=== PATIENT | male | born 1970 | race African-American/Black ===

== ENCOUNTER 2016-06-30 17:20 | Emergency (ER) | payer OTHER ==
[~2016-06-30] VITALS: Ht 177.8 cm; Wt 113.4 kg
[~2016-06-30 17:20] MED LIST: AMLO5TAB4 PO; ASPI325T4 PO; CARV12.5 PO; CARV6.25 PO; CARV6.252 PO; CLOP75TA PO; FURO-68 PO; FURO40TA4 PO; IBUP200T43 PO; LISI-334 PO; LISI20TA PO; LOVA20TA2 PO; POTA20TA12 PO; POTA20TA84 PO
[2016-06-30 17:31] VITALS: BP 143/103
[2016-06-30] MEDS ORDERED: HYDR-971 PO (18:22)
[2016-06-30] MEDS ORDERED: METH-37 PO (18:22)
--- NOTE | 2016-06-30 18:22 | PHYS DOC ---
Past Medical History Past Medical History: CAD, CHF, Hypertension Additional Past Surgical Histo: CARDIAC STENT, DEFIBRILLATOR Additional Information: nonsmoker Alcohol Use: None Drug Use: Marijuana Adult General Chief Complaint Chief Complaint: LOWER BACK PAIN OR INJURY HPI HPI Patient is a 46 year old male who presents with low back pain starting yesterday. There is no radiation of the pain. He states that his pain began while sitting and playing dominoes for many hours. He denies any injury to his back. He denies incontinence or saddle anesthesia. He has not had any nausea, vomiting, abdominal pain, or urinary symptoms. He does not have any weakness or numbness. His PCP is Dr. Julianna Herrera. Review of Systems Review of Systems Constitutional: Denies fever or chills. [] Eyes: Denies change in visual acuity, redness, or eye pain. [] HENT: Denies ear pain, nasal congestion or sore throat. [] Respiratory: Denies cough or shortness of breath. [] Cardiovascular: Denies chest pain, palpitations or edema. [] GI: Denies abdominal pain, nausea, vomiting, bloody stools or diarrhea. [] : Denies dysuria, hematuria or urinary frequency. [] Musculoskeletal: Denies joint pain. Reports low-back pain without radiation. Integument: Denies rash or skin lesions. [] Neurologic: Denies headache, focal weakness or sensory changes. Denies incontinence or saddle anesthesia. Endocrine: Denies polyuria or polydipsia. [] Psych: Denies anxiety or depression. [] All systems reviewed and negative unless otherwise stated in the HPI. Allergies Allergies Allergies Coded Allergies Type Severity Reaction Last Updated Verified erythromycin base Allergy Severe rash/hives 09/13/13 Yes Physical Exam Physical Exam Constitutional: Well developed, well nourished, no acute distress, non-toxic appearance. [] HENT: Normocephalic, atraumatic, oropharynx moist. [] Eyes: PERRLA, EOMI, conjunctiva normal, no discharge. [] Neck: Normal range of motion, no midline or paraspinal tenderness, supple, no stridor. [] Cardiovascular: Heart rate regular rhythm, no murmur. [] Lungs & Thorax: Bilateral breath sounds clear to auscultation without wheezes, rales, or rhonchi. [] Abdomen: Bowel sounds normal, soft, no tenderness, no masses, no pulsatile masses. [] Skin: Warm, dry, no erythema, no rash. [] Back: Lumbar midline tenderness, no CVA tenderness. Straight leg raise negative bilaterally. Extremities: No tenderness, ROM intact, no edema. Distal pulses equal bilaterally. Light touch sensation intact and equal bilaterally proximally and distally in the legs. Neurologic: Alert and oriented X 3, normal motor function, normal sensory function, no focal deficits noted. The patient walks with a normal, steady gait without assistance. Psychologic: Affect normal, judgement normal, mood normal. [] Current Patient Data Vital Signs Vital Signs Date Time Temp Pulse Resp B/P Pulse Ox O2 Delivery O2 Flow Rate FiO2 06/30/16 17:31 97.7 83 18 98 Room Air 97.7 EKG EKG [] Radiology/Procedures Radiology/Procedures [] Course & Med Decision Making Course & Med Decision Making Pertinent Labs and Imaging studies reviewed. (See chart for details) [] Dragon Disclaimer Dragon Disclaimer This electronic medical record was generated, in whole or in part, using a voice recognition dictation system. Departure Departure Impression: Primary Impression: Low back pain Disposition: HOME, SELF-CARE Condition: STABLE Referrals: UNKNOWN PCP NAME (PCP) Patient Instructions: Back Pain, Adult, [id number] Additional Instructions: Please take the prescribed medications as directed. Do not drive or operate heavy machinery while taking pain medication or muscle relaxers. In order to help your back pain, apply heat, practice gentle stretching, and light massage. Avoid bending or lifting activities that will further strain your back. Please follow-up with your primary care doctor if your pain continues. Return to emergency department if you have loss of bowel or bladder control, numbness between your legs, or other new or concerning symptoms. Scripts Methocarbamol (Robaxin)500 Mg Lisyhm277 Mg PO QID #20 TAB Prov:ARBEN NUNEZ 06/30/16 Hydrocodone/Apap 5-325 ([place] 5-325 Tablet)1 Each Tablet1 Tab PO PRN Q6HRS PRN PAIN #20 TAB Prov:ARBEN NUNEZ 06/30/16 Problem Qualifiers Primary Impression: Low back pain Chronicity: acute Back pain laterality: midline Sciatica presence: without sciatica Qualified Code: M54.5 - Low back pain ARBEN NUNEZ Jun 30, 2016 18:22
== END 2016-06-30 18:30 | disposition home or self-care (01) ==
LOC: ER 17:20
DX: M54.5 Low back pain (principal); I11.0 Hypertensive heart disease with heart failure; I50.9 Heart failure, unspecified; I25.10 Atherosclerotic heart disease of native coronary artery without angina pectoris; F12.10 Cannabis abuse, uncomplicated; Z95.810 Presence of automatic (implantable) cardiac defibrillator; Z88.1 Allergy status to other antibiotic agents
CPT/HCPCS: 99283

== ENCOUNTER → 2016-07-02 | Outpatient (CLI) | payer OTHER ==
[2016-06-30 17:31] VITALS: BP 143/103
[~2016-07-02] MED LIST changes: +HYDR-971 PO; +METH-37 PO; +REGADENOSON 0.4 MG/5 ML DISP.SYRIN. IV ONE
--- NOTE | 2016-07-04 10:13 | RAD ---
APPROVED REPORT Test Type: Pharmacological Stress Nurse/Tech: Joycelyn Kilgore R.N. Test Indications: CAD, Cardiomyopathy Cardiac History: Hypertension, Family history, CAD, Stent Medications: See Electronic Medical Record Medical History: See Electronic Medical Record Resting ECG: NSR Resting Heart Rate: 66 bpm Resting Blood Pressure: 157/100mmHg Pretest Chest Pain: No chest pain Nurse/Tech Notes S1S2, lungs sound clear Consent: The procedure was explained to the patient in lay terms. Informed consent was witnessed. [place]quito eout was entered into [employer]. History and Stress Test performed by Joycelyn Kilgore R.N. Pharm. Details Pharmacologic stress testing was performed using 0.4mg per 5ml of regadenoson given intravenously ove r 7-10 seconds. Stress Symptoms Dyspnea, stomach cramping POST EXERCISE Reason for Termination: Infusion complete Max HR: 101 bpm Max Blood Pressure: 164/99mmHg Blood Pressure response to exercise: Normal blood pressure response during stress. Chest Pain: No. Arrhythmia: No. ST Change: No. INTERPRETATION Stress EKG Conclusion: No evidence of stress induced EKG changes. Imaging Protocol IMAGE PROTOCOL: Rest Tc-99m/stress Tc-99m 1 day Rest: Stress: Viability: Radiopharm.Tc99m EjqlvrcasWh44h Sestamibi Pedw05aWh 34mCi Duration 17min. 12min. Img Date 07/02/2016 07/02/2016 Rest Admin Site:IV - Right AntecubitalAdministrator:TESSY Vinson Stress Admin Site: IV - Right AntecubitalAdministrator: Hawk Ibarra, RT (R)(N) STRESS DATA End Diast. Vol.120.0mlAv. Heart Rate66.0bpm End Syst. Vol.52.0mlCO Index BSA4.5L/min Myocardial Tgdp147.0gEject. Dhvomeqk35.0% Stress Rates Pk. Fill Rate2.30EDV/secLVtime Pk. Fill 105.60msec Pk. Empty Rate2.58ESV/secLVtime Pk. Jozzq470.45msec 04/22 Pk. Fill1.63EDV/sec Stress Scores Regional WT2.00Summed WT19.00 Regional WM0.00Summed WM11.00 The rest and stress images show normal perfusion, normal contraction and thickening. LV Perf. Quant 17 Seg. SSS1.00 17 Seg. SRS0.00 17 Seg. SDS1.00 Stress Defect Extent (% LAD)7.50Rest Defect Extent (% LAD)0.00Rev. Defect Extent (% LAD)6.30 Stress Defect Extent (% LCX) 0.00Rest Defect Extent (% LCX)0.00Rev. Defect Extent (% LCX)0.00 Stress Defect Extent (% RCA)0.00Rest Defect Extent (% RCA)0.00Rev. Defect Extent (% RCA)0.00 Stress Defect Extent (% SABRINA)4.10Rest Defect Extent (% SABRINA)0.00Rev. Defect Extent (% SABRINA)3.70 Other Information Quality:Fair Risk Assessment: Low Risk Conclusion 1. No evidence of stress induced EKG changes on vasodilator stress. 2. Normal perfusion at stress/rest. 3. EF 57% 4. Low risk study 5. Motion artifact noted.
--- NOTE | 2016-07-04 11:03 | CARD ---
APPROVED REPORT EXAM: Two-dimensional and M-mode echocardiogram with Doppler and color Doppler. Other Information Quality : GoodHR: 81bpm Rhythm : NSR INDICATION Hypertension/HCVD Non ischemic cardiomyopathy RISK FACTORS Hypertension Obesity 2D DIMENSIONS RVDd2.7 (2.9-3.5cm)Left Atrium(2D)3.7 (1.6-4.0cm) IVSd1.4 (0.7-1.1cm)Aortic Root(2D)3.2 (2.0-3.7cm) LVDd5.2 (3.9-5.9cm)LVOT Diameter2.5 (1.8-2.4cm) PWd1.3 (0.7-1.1cm)LVDs3.3 (2.5-4.0cm) FS (%) 35.9 %SV83.4 ml LVEF(%)65.1 (>50%) Aortic Valve AoV Peak Merlin.111.4cm/sAoV VTI22.6cm AO Peak GR.5.0mmHgLVOT Peak Merlin.80.2cm/s AO Mean GR.3mmHgAVA (VMAX)3.46cm2 Mitral Valve MV E Pprdigur45.3cm/sMV E Peak Gr.2mmHg MV DECEL [id number] A Cbktrgjs99.3cm/s MV E Mean Gr.1mmHgE/A Ratio0.8 MV A Pvvxlioh918tq Pulmonary Valve PV Peak Pdutvadc16.3cm/s Tricuspid Valve TR P. Nixwtwja497tl/sTR Peak Gr.25mmHg Pulmonary Vein S1 Txgxxmdw58.5cm/sD2 Qgyiouma51.7cm/s PVa vtzeimnz23umim LEFT VENTRICLE The left ventricle is normal size. There is mild concentric left ventricular hypertrophy. The left ve ntricular systolic function is normal and the ejection fraction is within normal range. The Ejection Fraction is 55-60%. There is normal LV segmental wall motion. Transmitral Doppler flow pattern is Gra de I-abnormal relaxation pattern. RIGHT VENTRICLE The right ventricle is normal size. There is normal right ventricular wall thickness. The right ventr icular systolic function is normal. ATRIA The left atrium size is normal. The right atrium size is normal. The interatrial septum is intact wit h no evidence for an atrial septal defect or patent foramen ovale as noted on 2-D or Doppler imaging. AORTIC VALVE The aortic valve is normal in structure and function. Doppler and Color Flow revealed no significant aortic regurgitation. There is no significant aortic valvular stenosis. MITRAL VALVE The mitral valve is normal in structure and function. There is no evidence of mitral valve prolapse. There is no mitral valve stenosis. Doppler and Color Flow revealed trace mitral valve regurgitation. TRICUSPID VALVE Doppler and Color Flow revealed mild tricuspid regurgitation. The pulmonary artery systolic pressure is estimated at 28 mmHg. PULMONIC VALVE Doppler and Color Flow revealed mild pulmonic valvular regurgitation. There is no pulmonic valvular s tenosis. GREAT VESSELS The aortic root is normal in size. The ascending aorta is normal in size. The pulmonary artery is nor mal. The IVC is normal in size and collapses >50% with inspiration. PERICARDIAL EFFUSION There is no evidence of significant pericardial effusion. Critical Notification Critical Value: No <Conclusion> The left ventricle is normal size. The left ventricular systolic function is normal and the ejection fraction is within normal range. The Ejection Fraction is 55-60%. There is mild concentric left ventricular hypertrophy. There is no significant aortic valvular stenosis. Doppler and Color Flow revealed no significant aortic regurgitation. Doppler and Color Flow revealed trace mitral valve regurgitation. Doppler and Color Flow revealed mild tricuspid regurgitation. The pulmonary artery systolic pressure is estimated at 28 mmHg.
== END | disposition home or self-care (01) ==
LOC: NM 09:04
PROVIDERS: ATTEND Internal Medicine Cardiovascular Disease
DX: I42.9 Cardiomyopathy, unspecified (principal)
CPT/HCPCS: 78452; 93017; 93306; 96374; 96375; 96376; A9500; J2785

== ENCOUNTER 2017-03-21 21:48 | Emergency (ER) | payer OTHER ==
[~2017-03-21] VITALS: Ht 177.8 cm; Wt 117.9 kg
[~2017-03-21 21:48] MED LIST changes: -ASPI325T4 PO; +ASPI325T8 PO; -IBUP200T43 PO; +IBUP200T44 PO; -REGADENOSON 0.4 MG/5 ML DISP.SYRIN. IV ONE
[2017-03-21 21:55] VITALS: BP 169/92
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
[2017-03-21] MEDS ORDERED: IBUPROFEN 800 MG TABLET. PO ONE (22:00)
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
== END 2017-03-21 22:33 | disposition home or self-care (01) ==
LOC: ER 21:48
DX: S63.602A Unspecified sprain of left thumb, initial encounter (principal); I25.10 Atherosclerotic heart disease of native coronary artery without angina pectoris; I11.0 Hypertensive heart disease with heart failure; I50.9 Heart failure, unspecified; F12.10 Cannabis abuse, uncomplicated; Z95.5 Presence of coronary angioplasty implant and graft; Z88.1 Allergy status to other antibiotic agents; Z95.810 Presence of automatic (implantable) cardiac defibrillator; X58.XXXA Exposure to other specified factors, initial encounter; Y93.89 Activity, other specified; Y92.89 Other specified places as the place of occurrence of the external cause; Y99.8 Other external cause status
CPT/HCPCS: 73130; 99284

== ENCOUNTER → 2017-06-29 | Outpatient (CLI) | payer OTHER | END | disposition home or self-care (01) | LOC: ECHO 10:09 | DX: I42.8 Other cardiomyopathies (principal); I36.1 Nonrheumatic tricuspid (valve) insufficiency | CPT/HCPCS: 93306 ==

== ENCOUNTER 2017-09-19 09:11 | Emergency (ER) | payer OTHER ==
[2017-09-19] MEDS: NAPROXEN 500 MG TABLET PO (09:51)
[2017-09-19] MEDS: predniSONE 20 MG TABLET PO (09:51)
[2017-09-19] MEDS: diazePAM 5 MG TABLET PO (09:52)
[2017-09-19] MEDS: HYDROcodone/APAP 5/325MG 1 TAB TABLET PO (09:52)
== END 2017-09-19 10:00 | disposition home or self-care (01) ==
LOC: ER 09:11
DX: M54.41 Lumbago with sciatica, right side (principal); M62.831 Muscle spasm of calf; I25.10 Atherosclerotic heart disease of native coronary artery without angina pectoris; I11.0 Hypertensive heart disease with heart failure; I50.9 Heart failure, unspecified; Z95.0 Presence of cardiac pacemaker; Z98.61 Coronary angioplasty status; Z88.1 Allergy status to other antibiotic agents
CPT/HCPCS: 99284; J7512

== ENCOUNTER 2017-12-08 19:37 | Emergency (ER) | payer OTHER ==
[~2017-12-08] VITALS: Ht 177.8 cm; Wt 113.4 kg
[~2017-12-08 19:37] MED LIST changes: +DIAZ5TAB PO; +METH4TAB2 PO; +NAPR-514 PO
[2017-12-08] MEDS: IPRATRPIUM/ALBUTEROL 0.5/2.5MG 3 ML NEBU. NEB ONE (20:22)
[2017-12-08 20:27] VITALS: BP 197/107
[2017-12-08] MEDS: cloNIDine HCL 0.1 MG TABLET PO ONE (20:27)
--- NOTE | 2017-12-08 20:39 | RAD ---
PROCEDURE: CHEST PA LATERAL CLINICAL INDICATION: SOA, COUGH, CONGESTION, HEADACHE X4 DAYS COMPARISON: None FINDINGS: No pneumothorax identified. Cardiac and mediastinal contours unremarkable. No pulmonary consolidation or acute airspace disease. No acute osseous abnormalities identified. Dual-lead cardiac pacer is seen with its leads projecting over the heart. IMPRESSION: No pulmonary consolidation or acute airspace disease. Electronically signed by: Casey Finch DO (12/08/2017 8:36 PM) [facility]
[2017-12-08] MEDS ORDERED: PROAIR HFA8.5 GM INH (20:46)
[2017-12-08] MEDS ORDERED: DOXY100C2 PO (20:46)
[2017-12-08] MEDS ORDERED: PRED50TA PO (20:46)
--- NOTE | 2017-12-08 20:48 | PHYS DOC ---
Past Medical History Past Medical History: CAD, CHF, Hypertension Past Surgical History: Angioplasty, Pacemaker Additional Past Surgical Histo: DEFIBRILLATOR Alcohol Use: Occasionally Drug Use: Marijuana Adult General Chief Complaint Chief Complaint: Congestion HPI HPI Patient is a 47 year old [f__sex] who presents with [] Review of Systems Review of Systems Constitutional: Denies fever or chills [] Eyes: Denies change in visual acuity, redness, or eye pain [] HENT: Denies nasal congestion or sore throat [] Respiratory: Denies cough or shortness of breath [] Cardiovascular: No additional information not addressed in HPI [] GI: Denies abdominal pain, nausea, vomiting, bloody stools or diarrhea [] : Denies dysuria or hematuria [] Musculoskeletal: Denies back pain or joint pain [] Integument: Denies rash or skin lesions [] Neurologic: Denies headache, focal weakness or sensory changes [] Endocrine: Denies polyuria or polydipsia [] All other systems were reviewed and found to be within normal limits, except as documented in this note. Current Medications Current Medications Current Medications Medications (Trade) Dose Ordered Sig/David Start Time Stop Time Status Last Admin Dose Admin Albuterol/ Ipratropium (Duoneb) 3 ml 1X ONCE 12/08/17 20:30 12/08/17 20:31 DC 12/08/17 20:22 3 ML Clonidine HCl (Catapres) 0.1 mg 1X ONCE 12/08/17 20:30 12/08/17 20:31 DC 12/08/17 20:27 0.1 MG Allergies Allergies Allergies Coded Allergies Type Severity Reaction Last Updated Verified erythromycin base Allergy Severe rash/hives 09/13/13 Yes Physical Exam Physical Exam Constitutional: Well developed, well nourished, no acute distress, non-toxic appearance. [] HENT: Normocephalic, atraumatic, bilateral external ears normal, oropharynx moist, no oral exudates, nose normal. [] Eyes: PERRLA, EOMI, conjunctiva normal, no discharge. [] Neck: Normal range of motion, no tenderness, supple, no stridor. [] Cardiovascular:Heart rate regular rhythm, no murmur [] Lungs & Thorax: Bilateral breath sounds clear to auscultation [] Abdomen: Bowel sounds normal, soft, no tenderness, no masses, no pulsatile masses. [] Skin: Warm, dry, no erythema, no rash. [] Back: No tenderness, no CVA tenderness. [] Extremities: No tenderness, no cyanosis, no clubbing, ROM intact, no edema. [] Neurologic: Alert and oriented X 3, normal motor function, normal sensory function, no focal deficits noted. [] Psychologic: Affect normal, judgement normal, mood normal. [] Current Patient Data Vital Signs Vital Signs Date Time Temp Pulse Resp B/P (MAP) Pulse Ox O2 Delivery O2 Flow Rate FiO2 12/08/17 20:27 68 197/107 12/08/17 20:24 98 Room Air 12/08/17 19:58 98.4 18 98.4 EKG EKG [] Radiology/Procedures Radiology/Procedures [] Course & Med Decision Making Course & Med Decision Making Pertinent Labs and Imaging studies reviewed. (See chart for details) [] Dragon Disclaimer Dragon Disclaimer This electronic medical record was generated, in whole or in part, using a voice recognition dictation system. Departure Departure Impression: Primary Impression: Bronchitis Additional Impressions: Headache Upper respiratory infection Disposition: 01 HOME, SELF-CARE Condition: STABLE Referrals: UNKNOWN PCP NAME (PCP) Patient Instructions: Acute Bronchitis, General Headache Without Cause, Easy-to -Read, Upper Respiratory Infection, Adult Additional Instructions: Take the medication as prescribed. You may use ibuprofen or Tylenol for your headache. Follow-up with your primary care provider in 3 days if not improving or return to the emergency department if worsening. Make sure that you have food on your stomach when you take the doxycycline. Scripts Albuterol Sulfate (PROAIR HFA INHALER) 8.5 Gm Hfa.aer.ad 1 PUFF INH PRN Q6HRS PRN for SHORTNESS OF BREATH, #1 INHALER 0 Refills Prov: EN BRANHAM APRN 12/08/17 Prednisone (PREDNISONE) 50 Mg Tablet 1 TAB PO DAILY, #5 TAB Prov: EN BRANHAM APRN 12/08/17 Doxycycline Hyclate (DOXYCYCLINE HYCLATE) 100 Mg Capsule 1 CAP PO BID, #14 CAP Prov: EN BRANHAM APRN 12/08/17 Problem Qualifiers EN BRANHAM APRN Dec 08, 2017 20:48
== END 2017-12-08 20:59 | disposition home or self-care (01) ==
LOC: ER 19:37
DX: J20.9 Acute bronchitis, unspecified (principal); R51 Headache; I11.0 Hypertensive heart disease with heart failure; I50.9 Heart failure, unspecified; I25.10 Atherosclerotic heart disease of native coronary artery without angina pectoris; Z95.0 Presence of cardiac pacemaker; Z88.1 Allergy status to other antibiotic agents
CPT/HCPCS: 71046; 94640; 99284; J7620

== ENCOUNTER → 2018-08-26 | Outpatient (CLI) | payer OTHER ==
[~2018-08-26] MED LIST changes: +ALBU2.5V8 INH; +CARV6.2511 PO; -CARV6.252 PO; +DOXY100C2 PO; +HYDR-3164 PO; -HYDR-971 PO; +PRED50TA PO
--- NOTE | 2018-08-26 10:42 | CARD ---
MR#: [id number] Date of Study: 08/26/2018 Ordering Physician: JUANJO SALMERON, Referring Physician: JUANJO SALMERON Tech: Maritza Ventura RDCS APPROVED REPORT EXAM: Two-dimensional and M-mode echocardiogram with Doppler and color Doppler. Other Information Quality : GoodHR: 75bpm Rhythm : NSR INDICATION Congestive Heart Failure 2D DIMENSIONS RVDd3.4 (2.9-3.5cm)Left Atrium(2D)4.0 (1.6-4.0cm) IVSd1.7 (0.7-1.1cm)Aortic Root(2D)3.4 (2.0-3.7cm) LVDd4.4 (3.9-5.9cm)LVOT Diameter2.3 (1.8-2.4cm) PWd1.3 (0.7-1.1cm)LVDs3.1 (2.5-4.0cm) FS (%) 29.0 %SV49.7 ml LVEF(%)55.8 (>50%) M-Mode DIMENSIONS Left Atrium(MM)4.37 (2.5-4.0cm)Aortic Root3.33 (2.2-3.7cm) Aortic Valve AoV Peak Merlin.112.3cm/sAoV VTI22.6cm AO Peak GR.5.0mmHgLVOT Peak Merlin.95.5cm/s AO Mean GR.3mmHgAVA (VMAX)3.63cm2 ZOFIA (VTI)3.50cm2 Mitral Valve MV E Jroeoczu41.0cm/sMV DECEL [id number] MV A Frcoaxns88.7cm/sE/A Ratio1.0 MV A Cvlosvkc788ub Pulmonary Valve PV Peak Vsqeiphx783.9cm/s Tricuspid Valve TR P. Mlgmeajc625ec/sRAP HAVQAXIU3hdAm TR Peak Gr.52yrQwDYYS27yoFk LEFT VENTRICLE The left ventricle is normal size. There is moderate concentric left ventricular hypertrophy. Left ve ntricle systolic function is normal. The Ejection Fraction is 55-60%. There is normal LV segmental wa ll motion. Transmitral Doppler flow pattern is Grade II-pseudonormal filling dynamics. RIGHT VENTRICLE The right ventricle is normal size. There is normal right ventricular wall thickness. The right ventr icular systolic function is normal. Pacer lead noted in RV/RA. ATRIA The left atrium is mildly dilated. The right atrium size is normal. The interatrial septum is intact with no evidence for an atrial septal defect or patent foramen ovale as noted on 2-D or Doppler imagi ng. AORTIC VALVE The aortic valve is normal in structure and function. The aortic valve is trileaflet. Doppler and Col or Flow revealed no significant aortic regurgitation. There is no significant aortic valvular stenosi s. There is no aortic valvular vegetation. MITRAL VALVE The mitral valve is normal in structure and function. There is no evidence of mitral valve prolapse. There is no mitral valve stenosis. Doppler and Color Flow revealed no mitral valve regurgitation note d. TRICUSPID VALVE The tricuspid valve is normal in structure and function. Doppler and Color Flow revealed trace to mil d tricuspid regurgitation. There is mild pulmonary hypertension. The PA pressure was estimated at 34 mmHg. There is no tricuspid valve prolapse or vegetation. There is no tricuspid valve stenosis. PULMONIC VALVE The pulmonary valve is normal in structure and function. Doppler and Color Flow revealed trace pulmon ic valvular regurgitation. There is no pulmonic valvular stenosis. GREAT VESSELS The aortic root is normal in size. The ascending aorta is normal in size. The IVC is normal in size a nd collapses >50% with inspiration. PERICARDIAL EFFUSION There is no evidence of significant pericardial effusion. Critical Notification Critical Value: No <Conclusion> Left ventricle systolic function is normal. The Ejection Fraction is 55-60%. There is normal LV segmental wall motion. Pacer lead noted in RV/RA. The left atrium is mildly dilated. Trace to mild tricuspid regurgitation. The PA pressure was estimated at 34 mmHg. There is no evidence of significant pericardial effusion. Signed by : Juanjo Salmeron, Electronically Approved : 08/26/2018 10:42:09
== END | disposition home or self-care (01) ==
LOC: ECHO 09:46
PROVIDERS: ATTEND Internal Medicine Cardiovascular Disease
DX: I11.0 Hypertensive heart disease with heart failure (principal); I50.22 Chronic systolic (congestive) heart failure; I07.1 Rheumatic tricuspid insufficiency; I27.20 Pulmonary hypertension, unspecified
CPT/HCPCS: 93306

== ENCOUNTER → 2020-05-08 | Outpatient (CLI) | payer OTHER ==
--- NOTE | 2020-05-08 14:30 | CARD ---
MR#: [id number] Date of Study: 05/08/2020 Ordering Physician: JUANJO MORROW, Referring Physician: JUANJO MORROW, Tech: Ana Navarro RDCS APPROVED REPORT EXAM: Two-dimensional and M-mode echocardiogram with Doppler and color Doppler. Other Information Quality : Good INDICATION Congestive Heart Failure ICD 2D DIMENSIONS RVDd3.1 (2.9-3.5cm)Left Atrium(2D)3.7 (1.6-4.0cm) IVSd1.4 (0.7-1.1cm)Aortic Root(2D)2.9 (2.0-3.7cm) LVDd4.6 (3.9-5.9cm)LVOT Diameter2.2 (1.8-2.4cm) PWd1.3 (0.7-1.1cm)LVDs3.0 (2.5-4.0cm) FS (%) 35.1 %SV63.7 ml LVEF(%)64.4 (>50%) Aortic Valve AoV Peak Merlin.91.1cm/sAoV VTI16.6cm AO Peak GR.3.3mmHgLVOT Peak Merlin.67.0cm/s LVOT VTI 13.28cmAO Mean GR.2mmHg ZOFIA (VMAX)2.13jl0ESK (VTI)3.02cm2 Mitral Valve MV E Wjwdbixu23.7cm/sMV DECEL [id number] MV A Mnmkvsof54.3cm/sMV EWD17hm E/A Ratio0.7MVA (PHT)2.86cm2 TDI E/Lateral E'11.3E/Medial E'7.9 Tricuspid Valve TR P. Kxbslcso417fa/sRAP EMACQUBI8llEo TR Peak Gr.45gjLzDYSV64bkLa Pulmonary Vein S1 Bwapqznv36.6cm/sD2 Mftvjhpn14.7cm/s LEFT VENTRICLE The left ventricle is normal size. There is mild to moderate concentric left ventricular hypertrophy. The left ventricular systolic function is normal. The Ejection Fraction is 60-65%. There is normal L V segmental wall motion. Transmitral Doppler flow pattern is Grade I-abnormal relaxation pattern. RIGHT VENTRICLE The right ventricle is normal size. The right ventricular systolic function is normal. There is a pac emaker lead in the right ventricle. ATRIA The left atrium size is normal. The right atrium size is normal. A pacemaker is seen in the right atr ium consistent with history. The interatrial septum is intact with no evidence for an atrial septal d efect or patent foramen ovale as noted on 2-D or Doppler imaging. AORTIC VALVE The aortic valve is calcified but opens well. Doppler and Color Flow revealed no significant aortic r egurgitation. There is no significant aortic valvular stenosis. MITRAL VALVE The mitral valve is normal in structure and function. There is no evidence of mitral valve prolapse. There is no mitral valve stenosis. Doppler and Color Flow revealed no mitral valve regurgitation note d. TRICUSPID VALVE The tricuspid valve is normal in structure and function. Doppler and Color Flow revealed mild tricusp id regurgitation. There is mild pulmonary hypertension. The PA pressure was estimated at 38 mmHg. The re is no tricuspid valve stenosis. PULMONIC VALVE The pulmonary valve is normal in structure and function. Doppler and Color Flow revealed trace to mil d pulmonic valvular regurgitation. There is no pulmonic valvular stenosis. GREAT VESSELS The aortic root is normal in size. The ascending aorta is normal in size. The IVC is normal in size a nd collapses >50% with inspiration. PERICARDIAL EFFUSION There is no evidence of significant pericardial effusion. Critical Notification Critical Value: No <Conclusion> The left ventricular systolic function is normal. The Ejection Fraction is 60-65%. There is normal LV segmental wall motion. Transmitral Doppler flow pattern is Grade I-abnormal relaxation pattern. Pacer/ICD lead noted in RA/RV. Mild tricuspid regurgitation. The PA pressure was estimated at 38 mmHg. There is no evidence of significant pericardial effusion. Signed by : Juanjo Morrow, Electronically Approved : 05/08/2020 14:29:48
== END ==
LOC: CARD 08:23
PROVIDERS: ATTEND Internal Medicine Cardiovascular Disease
DX: I08.8 Other rheumatic multiple valve diseases (principal); I27.20 Pulmonary hypertension, unspecified; I11.0 Hypertensive heart disease with heart failure; Z95.0 Presence of cardiac pacemaker
CPT/HCPCS: 93306

== ENCOUNTER 2021-06-24 06:50 | Observation (INO) | payer OTHER ==
[~2021-06-24] VITALS: Ht 177.8 cm; Wt 125.7 kg
[~2021-06-24 06:50] MED LIST changes: -DOXY100C2 PO; +DOXY100C3 PO; -LISI-334 PO; +LISI20TA18 PO
--- NOTE | 2021-06-24 06:54 | PHYS DOC ---
Past Medical History Past Medical History: CAD, CHF, Hypertension Past Surgical History: Angioplasty, Pacemaker Additional Past Surgical Histo: DEFIBRILLATOR Smoking Status: Former Smoker Alcohol Use: Occasionally Drug Use: Marijuana General Adult HPI: HPI: Patient is a 51 year old male who arrives by private vehicle with report of feeling as if his ICD is firing. Symptoms began 3 days ago. He reports that he felt like something was slamming inside of his chest on Thursday. He had 1 episode occur last night, and then again this morning. He reports that symptoms began while he was at rest. He has had 3 total episodes. He denies any associated chest pain. He does report "a little" of shortness of breath. He has had several days of nasal congestion. He denies cough or hemoptysis. He denies dizziness, syncope, exertional dyspnea, diaphoresis, Jacob pain, nausea or vomiting. Denies lower extremity pain or swelling. Denies fevers or chills. He is not vaccinated against COVID-19. He has had ICD placed since 2013. 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 He has never previously experienced the symptoms. Review of Systems: Review of Systems: Constitutional: Denies fever or chills. [] HENT: He does report nasal congestion. He denies sore throat or voice c hanges. Respiratory: He denies cough or hemoptysis. He does report mild dyspnea. Cardiovascular: Denies chest pain or edema. He denies syncope. GI: Denies abdominal pain, nausea, vomiting Musculoskeletal: Denies back pain or joint pain. [] Integument: Denies rash. [] Neurologic: Denies headache, focal weakness or sensory changes. He denies dizziness, vertigo, numbness, tingling or syncope Psychiatric: Denies depression or anxiety. [] Heart Score: C/O Chest Pain: No Risk Factors: Risk Factors: DM, Current or recent (<one month) smoker, HTN, HLP, family history of CAD, obesity. Risk Scores: Score 0 - 3: 2.5% MACE over next 6 weeks - Discharge Home Score 4 - 6: 20.3% MACE over next 6 weeks - Admit for Clinical Observation Score 7 - 10: 72.7% MACE over next 6 weeks - Early Invasive Strategies Allergies: Allergies: Allergies Coded Allergies Type Severity Reaction Last Updated Verified erythromycin base Allergy Severe rash/hives 09/13/13 Yes Physical Exam: PE: Constitutional: Well developed, well nourished, no acute distress, non-toxic appearance. [] HENT: Normocephalic, atraumatic Eyes: Conjunctive are clear, sclerae anicteric Neck: Normal range of motion, no tenderness, supple, no stridor. Trachea midline, no JVD Cardiovascular:Heart rate regular rhythm, +2 radial and +2 posterior tibial pulses bilaterally, no cyanosis, no edema, warm and well-perfused appearing. Lungs & Thorax: Bilateral breath sounds clear to auscultation [] Abdomen: Abdomen is obese, soft, nondistended, nontender to palpation. Skin: Warm, dry, no erythema, no rash. [] Extremities: No tenderness, no cyanosis, no clubbing, ROM intact, no edema. No calf tenderness. Neurologic: He is awake, alert, oriented x3, no facial asymmetry, gross function is normal, ambulatory with a steady gait, moves all 4 extremities equally Speech is clear and fluent, gait is nonantalgic, steady, no obvious gait ataxia Psychologic: Affect normal, judgement normal, mood normal. [] EKG: EKG: EKG is interpreted at 0718 Rhythm is sinus Rate is 62 bpm [place] is normal No STEMI Radiology/Procedures: Radiology/Procedures: IMAGING REPORT Signed PATIENT: RITA MCINTOSH ACCOUNT: [id number] : 1970 LOCATION: ER AGE: 51 SEX: M EXAM STATUS: REG ER ORD. PHYSICIAN: CHRISTIANA CHOWDHURY DO REASON: dyspnea, defib firing PROCEDURE: PORTABLE CHEST 1V AP portable chest radiograph 06/24/2021 Clinical History: Shortness of breath. Defibrillator discharge. An AP erect portable digital radiograph of the chest was obtained. Comparison study is dated 12/08/2017. A pacemaker/defibrillator is unchanged in position. The cardiac silhouette is normal in size. The thoracic aorta is mildly tortuous. No acute pulmonary infiltrate is seen. No pleural effusion or pneumothorax is noted. Degenerative changes are seen involving the thoracic spine. IMPRESSION: No acute abnormality is seen. Electronically signed by: Duong Ruffin MD (06/24/2021 7:44 AM) [id number] DICTATED and SIGNED BY: DUONG RUFFIN MD DATE: 06/24/21 [id number] Course & Med Decision Making: Course & Med Decision Making Pertinent Labs and Imaging studies reviewed. (See chart for details) I was able to get a hold of the [employer] sales representative cash registers, who interrogated the patient's defibrillator, reviewed rhythm strips from last night and this morning, she denies any evidence of V. tach or V. fib. The patient will be admitted to the hospital, cardiology will be consulted, they will further interrogate his device to find out what he may have been experiencing. He has had no repeat episodes of sensation of ICD firing, no chest pain here. He is accepted for admission by Dr. Davalos. Cierra Disclaimer: Cierra Disclaimer: This electronic medical record was generated, in whole or in part, using a voice recognition dictation system. Departure Departure Impression: Primary Impression: Chest discomfort Additional Impressions: ICD (implantable cardioverter-defibrillator) in place Abnormal ICD sensing Qualified Codes: T82.190A - Other mechanical complication of cardiac electrode, initial encounter Disposition: ADMITTED INPATIENT Admitting Physician: [facility] (Dr. Davalos) Condition: STABLE Referrals: UNKNOWN PCP NAME (PCP) CHRISTIANA CHOWDHURY DO Jun 24, 2021 06:54
[2021-06-24] MEDS ORDERED: ASPIRIN ENTERIC COATED 325 MG TABLET.DR. PO ONE (07:15)
[2021-06-24 07:42] LABS: BASO # 0.1 x10^3/uL (0.0-0.2); BASO % 1 % (0-3); EOS # 0.2 x10^3/uL (0.0-0.7); EOS % 3 % (0-3); HEMATOCRIT 39.8 % (39.0-53.0); HEMOGLOBIN 13.4 g/dL (13.0-17.5); LYMPH # 2.1 x10^3/uL (1.0-4.8); LYMPH % 25 % (24-48); MEAN CORPUSCULAR HEMOGLOBIN 32 pg (25-35); MEAN CORPUSCULAR HGB CONC 34 g/dL (31-37); MEAN CORPUSCULAR VOLUME 96 fL (79-100); MONO # 0.9 x10^3/uL (0.0-1.1); MONO % 11 % (0-9); NEUT % 60 % (31-73); PLATELET COUNT 233 x10^3/uL (140-400); RED BLOOD COUNT 4.15 x10^6/uL (4.30-5.70); RED CELL DISTRIBUTION WIDTH 13.7 % (11.5-14.5); WHITE BLOOD COUNT 8.4 x10^3/uL (4.0-11.0)
--- NOTE | 2021-06-24 07:47 | RAD ---
AP portable chest radiograph 06/24/2021 Clinical History: Shortness of breath. Defibrillator discharge. An AP erect portable digital radiograph of the chest was obtained. Comparison study is dated 12/08/2017. A pacemaker/defibrillator is unchanged in position. The cardiac silhouette is normal in size. The tho racic aorta is mildly tortuous. No acute pulmonary infiltrate is seen. No pleural effusion or pneumot horax is noted. Degenerative changes are seen involving the thoracic spine. IMPRESSION: No acute abnormality is seen. Electronically signed by: Duong Ruffin MD (06/24/2021 7:44 AM) [id number]
[2021-06-24 07:48] LABS: CALCIUM 8.8 mg/dL (8.5-10.1); CREATININE 1.7 mg/dL (0.7-1.3); GFR 51.3; POTASSIUM 4.3 mmol/L (3.5-5.1)
[2021-06-24 07:54] LABS: ALBUMIN 3.7 g/dL (3.4-5.0); ALBUMIN/GLOBULIN RATIO 1.1 (1.0-1.7); MAGNESIUM 1.8 mg/dL (1.8-2.4); PHOSPHORUS 4.1 mg/dL (2.6-4.7); TOTAL BILIRUBIN 0.4 mg/dL (0.2-1.0); TOTAL PROTEIN 7.1 g/dL (6.4-8.2)
[2021-06-24 11:50] VITALS: BP 148/92
--- NOTE | 2021-06-24 12:28 | PDOC1 ---
History and Physical Date of Service: DOS: DATE: 06/24/21 TIME: 12:22 Chief Complaint: Chief Complain: Chest pain from firing of his AICD History of Present Illness: HPI: History obtained from discussion with the ED physician and chart review: 51-year-old male with past medical history of CAD, CHF, hypertension, AICD placement who reports chest pain secondary to AICD firing randomly. This began 3 days ago and it felt like someone was pounding on his chest. He had one episode last night and again this morning. It occurred during rest and has a total of 3 episodes. Patient does report some shortness of breath. Denies any fevers abdominal pains or recent illnesses. = He is not vaccinated against COVID-19. He has had ICD placed since 2013. 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 He has never previously experienced the symptoms. Past Medical/Surgical History: PMH/PSH: Past Medical History: CAD, CHF, Hypertension Past Surgical History: Angioplasty, DEFIBRILLATOR Allergies: Allergies: Coded Allergies: erythromycin base (Verified Allergy, Severe, rash/hives, 06/24/21) Family History: Family History: Reviewed with no relative findings in the chart Social History: Social History: Smoking Status: Former Smoker Alcohol Use: Occasionally Drug Use: Marijuana Current Medications: Current Medications Current Medications Aspirin (Ecotrin) 325 mg 1X ONCE PO Last administered on 06/24/21at 08:25; Start 06/24/21 at 07:15; Stop 06/24/21 at 07:16; Status DC Active Scripts Active Proair Hfa Inhaler (Albuterol Sulfate) 8.5 Gm Hfa.aer.ad 1 Puff INH PRN Q6HRS PRN Prednisone 50 Mg Tablet 1 Tab PO DAILY Doxycycline Hyclate 100 Mg Capsule 1 Cap PO BID Naproxen 500 Mg Tablet 1 Tab PO BID Valium (Diazepam) 5 Mg Tablet 5 Mg PO TID Medrol (Methylprednisolone) 4 Mg Tab.ds.pk 1 Pkg PO UD Landing 5-325 Tablet (Acetaminophen/Hydrocodone Bitart) 1 Each Tablet 1-2 Tab PO Q4-6HRS Robaxin (Methocarbamol) 500 Mg Tablet 500 Mg PO QID Landing 5-325 Tablet (Acetaminophen/Hydrocodone Bitart) 1 Each Tablet 1 Tab PO PRN Q6HRS PRN Prinivil (Lisinopril) 20 Mg Tablet 40 Mg PO DAILY Reported Norvasc (Amlodipine Besylate) 5 Mg Tablet 1 Tab PO DAILY Coreg (Carvedilol) 12.5 Mg Tablet 1 Tab PO BID Motrin Ib (Ibuprofen) 200 Mg Tablet 400 Mg PO PRN PRN Lovastatin 20 Mg Tablet 20 Mg PO DAILY Potassium Chloride 20 Meq Tab.er.prt 20 Meq PO DAILY Furosemide 40 Mg Tablet 40 Mg PO DAILY Aspirin 325 Mg Tablet 325 Mg PO DAILY Clopidogrel (Clopidogrel Bisulfate) 75 Mg Tablet 75 Mg PO DAILY Aspirin 325 Mg Tablet 325 Mg PO DAILY Clopidogrel (Clopidogrel Bisulfate) 75 Mg Tablet 75 Mg PO DAILY K-Tab ER (Potassium Chloride) 20 Meq Tablet.er 20 Meq PO DAILY Coreg (Carvedilol) 6.25 Mg Tablet 6.25 Mg PO BID Lisinopril 20 Mg Tablet 20 Mg PO DAILY Lasix (Furosemide) 40 Mg Tablet 40 Mg PO DAILY Lovastatin 20 Mg Tablet 20 Mg PO QHS ROS: Review of Systems Review of System REVIEW OF SYSTEMS: GENERAL: Denies weakness SKIN: No bruising, hair changes or rashes. EYES: No blurred, double or loss of vision. NOSE AND THROAT: No history of nosebleeds, hoarseness or sore throat. HEART: Positive for chest pain LUNGS: Denies cough, hemoptysis, wheezing or shortness of breath. GASTROINTESTINAL: Denies changes in appetite, nausea, vomiting, diarrhea or constipation. GENITOURINARY: No history of frequency, urgency, hesitancy or nocturia. NEUROLOGIC: Denies history of numbness, tingling, or tremor. PSYCHIATRIC: No history of panic, anxiety or depression. ENDOCRINE: No history of heat or cold intolerance, polyuria or polydipsia. EXTREMITIES: Denies joint pain, pain on walking or stiffness. Physical Exam: Vital Signs: Vital Signs Date Time Temp Pulse Resp B/P (MAP) Pulse Ox O2 Delivery O2 Flow Rate FiO2 06/24/21 11:50 97.7 64 18 148/92 (110) 97 Room Air 97.7 Physcial Exam: General: Well developed, well nourished, no acute distress, well appearing HEENT: Pupils equally round and reactive to light, EOMI, no discharge, normal conjunctiva Neck: Supple, no nuchal rigidity, no JVD, trachea midline, no tenderness Cardiac: RRR, no murmurs, no gallops, no rubs Chest/Lungs: CTAB, no wheeze, no rhonchi, no crackles Abdomen: soft, non-distended, no guarding, no peritoneal signs, non-tender Back: No tenderness Extremities: no edema, pulses intact, non-tender,capillary refill <3 sec bilateral upper and lower extremities, Neuro: Alert and oriented x 4, no focal deficits, normal speech Skin: AICD intact. No signs of surrounding erythema or infection. Labs: Labs: Laboratory Tests Test 06/24/21 07:25 White Blood Count 8.4 x10^3/uL (4.0-11.0) Red Blood Count 4.15 x10^6/uL (4.30-5.70) Hemoglobin 13.4 g/dL (13.0-17.5) Hematocrit 39.8 % (39.0-53.0) Mean Corpuscular Volume 96 fL (79-100) Mean Corpuscular Hemoglobin 32 pg (25-35) Mean Corpuscular Hemoglobin Concent 34 g/dL (31-37) Red Cell Distribution Width 13.7 % (11.5-14.5) Platelet Count 233 x10^3/uL (140-400) Neutrophils (%) (Auto) 60 % (31-73) Lymphocytes (%) (Auto) 25 % (24-48) Monocytes (%) (Auto) 11 % (0-9) Eosinophils (%) (Auto) 3 % (0-3) Basophils (%) (Auto) 1 % (0-3) Neutrophils # (Auto) 5.0 x10^3/uL (1.8-7.7) Lymphocytes # (Auto) 2.1 x10^3/uL (1.0-4.8) Monocytes # (Auto) 0.9 x10^3/uL (0.0-1.1) Eosinophils # (Auto) 0.2 x10^3/uL (0.0-0.7) Basophils # (Auto) 0.1 x10^3/uL (0.0-0.2) Sodium Level 141 mmol/L (136-145) Potassium Level 4.3 mmol/L (3.5-5.1) Chloride Level 106 mmol/L (98-107) Carbon Dioxide Level 26 mmol/L (21-32) Anion Gap 9 (6-14) Blood Urea Nitrogen 25 mg/dL (8-26) Creatinine 1.7 mg/dL (0.7-1.3) Estimated GFR (Cockcroft-Gault) 51.3 BUN/Creatinine Ratio 15 (6-20) Glucose Level 99 mg/dL (70-99) Calcium Level 8.8 mg/dL (8.5-10.1) Phosphorus Level 4.1 mg/dL (2.6-4.7) Magnesium Level 1.8 mg/dL (1.8-2.4) Total Bilirubin 0.4 mg/dL (0.2-1.0) Aspartate Amino Transf (AST/SGOT) 11 U/L (15-37) Alanine Aminotransferase (ALT/SGPT) 20 U/L (16-63) Alkaline Phosphatase 74 U/L (46-116) Creatine Kinase 202 U/L (39-308) Troponin I High Sensitivity 49 ng/L (4-75) LE-Mhw-O-Type Natriuretic Peptide 40 pg/mL (0-124) Total Protein 7.1 g/dL (6.4-8.2) Albumin 3.7 g/dL (3.4-5.0) Albumin/Globulin Ratio 1.1 (1.0-1.7) Laboratory Tests Test 06/24/21 07:25 White Blood Count 8.4 x10^3/uL (4.0-11.0) Red Blood Count 4.15 x10^6/uL (4.30-5.70) Hemoglobin 13.4 g/dL (13.0-17.5) Hematocrit 39.8 % (39.0-53.0) Mean Corpuscular Volume 96 fL (79-100) Mean Corpuscular Hemoglobin 32 pg (25-35) Mean Corpuscular Hemoglobin Concent 34 g/dL (31-37) Red Cell Distribution Width 13.7 % (11.5-14.5) Platelet Count 233 x10^3/uL (140-400) Neutrophils (%) (Auto) 60 % (31-73) Lymphocytes (%) (Auto) 25 % (24-48) Monocytes (%) (Auto) 11 % (0-9) Eosinophils (%) (Auto) 3 % (0-3) Basophils (%) (Auto) 1 % (0-3) Neutrophils # (Auto) 5.0 x10^3/uL (1.8-7.7) Lymphocytes # (Auto) 2.1 x10^3/uL (1.0-4.8) Monocytes # (Auto) 0.9 x10^3/uL (0.0-1.1) Eosinophils # (Auto) 0.2 x10^3/uL (0.0-0.7) Basophils # (Auto) 0.1 x10^3/uL (0.0-0.2) Sodium Level 141 mmol/L (136-145) Potassium Level 4.3 mmol/L (3.5-5.1) Chloride Level 106 mmol/L (98-107) Carbon Dioxide Level 26 mmol/L (21-32) Anion Gap 9 (6-14) Blood Urea Nitrogen 25 mg/dL (8-26) Creatinine 1.7 mg/dL (0.7-1.3) Estimated GFR (Cockcroft-Gault) 51.3 BUN/Creatinine Ratio 15 (6-20) Glucose Level 99 mg/dL (70-99) Calcium Level 8.8 mg/dL (8.5-10.1) Phosphorus Level 4.1 mg/dL (2.6-4.7) Magnesium Level 1.8 mg/dL (1.8-2.4) Total Bilirubin 0.4 mg/dL (0.2-1.0) Aspartate Amino Transf (AST/SGOT) 11 U/L (15-37) Alanine Aminotransferase (ALT/SGPT) 20 U/L (16-63) Alkaline Phosphatase 74 U/L (46-116) Creatine Kinase 202 U/L (39-308) Troponin I High Sensitivity 49 ng/L (4-75) EW-Ajb-Y-Type Natriuretic Peptide 40 pg/mL (0-124) Total Protein 7.1 g/dL (6.4-8.2) Albumin 3.7 g/dL (3.4-5.0) Albumin/Globulin Ratio 1.1 (1.0-1.7) Images: Images PROCEDURE: PORTABLE CHEST 1V AP portable chest radiograph 06/24/2021 Clinical History: Shortness of breath. Defibrillator discharge. An AP erect portable digital radiograph of the chest was obtained. Comparison study is dated 12/08/2017. A pacemaker/defibrillator is unchanged in position. The cardiac silhouette is normal in size. The thoracic aorta is mildly tortuous. No acute pulmonary infiltrate is seen. No pleural effusion or pneumothorax is noted. Degenerative changes are seen involving the thoracic spine. IMPRESSION: No acute abnormality is seen. Assessment/Plan Assessment/Plan Chest pain secondary to random firing of his AICD JORDI due to vasomotor nephropathy History of CHF, with grade 1 diastolic dysfunction Morbid obesity History of CAD History of hypertension History of marijuana use Admit to hospitalist service for further management Cardiology consult Interrogation of AICD device Continue telemetry monitoring Lovenox for DVT prophylaxis N.p.o. for now CODE STATUS full Discussed with RN and SW Disposition inpatient management as above DPOA: Justifications for Admission Other Justification NANO HAY MD Jun 24, 2021 12:28
[2021-06-24] MEDS ORDERED: DOCUSATE SODIUM 100 MG CAPSULE. PO PRN (12:30)
[2021-06-24] MEDS ORDERED: SENNOSIDES 8.6 MG TABLET PO PRN (12:30)
[2021-06-24] MEDS ORDERED: ACETAMINOPHEN 325 MG TABLET. PO PRN (12:30)
[2021-06-24] MEDS ORDERED: DEXTROSE 50% 25 GM / 50ML DISP.SYRIN. IV PRN (12:30)
[2021-06-24] MEDS ORDERED: ZOLPIDEM 5 MG TABLET. PO PRN (12:30)
[2021-06-24] MEDS ORDERED: ONDANSETRON PF 4 MG/2 ML VIAL. IVP PRN (12:30)
[2021-06-24] MEDS ORDERED: PROCHLORPERAZINE 10 MG/2 ML VIAL. IV PRN (12:30)
[2021-06-24] MEDS ORDERED: diphenhydrAMINE 50 MG/ML VIAL IVP PRN (12:30)
[2021-06-24] MEDS ORDERED: LORazepam 0.5 MG TABLET PO PRN (12:30)
[2021-06-24] MEDS ORDERED: diphenhydrAMINE HCL 25 MG CAPSULE PO PRN ×2 (12:30)
[2021-06-24] MEDS ORDERED: HYDROcodone/APAP 5/325MG 1 TAB TABLET PO PRN (12:30)
[2021-06-24] MEDS: IV NORMAL SALINE 1000ML BAG 1,000 ML IV SCH ×2 (13:00→20:56)
[2021-06-24 15:00] VITALS: BP 136/87
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
[2021-06-24] MEDS ORDERED: AMIO200T53 PO (16:42)
[2021-06-24] MEDS ORDERED: CRESTOR40 MG PO (16:42)
[2021-06-24] MEDS ORDERED: CARV25TA2 PO (16:43)
[2021-06-24 19:00] VITALS: BP 148/96
[2021-06-24] MEDS ORDERED: ENOXAPARIN 40 MG/0.4 ML SYRINGE. SQ SCH (21:00)
[2021-06-24 22:33] VITALS: BP 144/89
[2021-06-25 03:00] VITALS: BP 149/92
[2021-06-25 05:55] LABS: CALCIUM 8.6 mg/dL (8.5-10.1); CREATININE 1.4 mg/dL (0.7-1.3); GFR 64.1; MAGNESIUM 2.1 mg/dL (1.8-2.4); PHOSPHORUS 3.5 mg/dL (2.6-4.7); POTASSIUM 3.9 mmol/L (3.5-5.1)
[2021-06-25 06:57] LABS: BASO % 0 % (0-3); EOS # 0.3 x10^3/uL (0.0-0.7); EOS % 3 % (0-3); HEMATOCRIT 43.1 % (39.0-53.0); LYMPH # 2.5 x10^3/uL (1.0-4.8); LYMPH % 32 % (24-48); MEAN CORPUSCULAR HEMOGLOBIN 32 pg (25-35); MEAN CORPUSCULAR HGB CONC 33 g/dL (31-37); MEAN CORPUSCULAR VOLUME 97 fL (79-100); MONO # 0.7 x10^3/uL (0.0-1.1); MONO % 9 % (0-9); NEUT # 4.5 x10^3/uL (1.8-7.7); NEUT % 56 % (31-73); PLATELET COUNT 220 x10^3/uL (140-400); RED BLOOD COUNT 4.45 x10^6/uL (4.30-5.70); RED CELL DISTRIBUTION WIDTH 13.6 % (11.5-14.5)
[2021-06-25 07:00] VITALS: BP 134/94
[2021-06-25] MEDS: IV NORMAL SALINE 1000ML BAG 1,000 ML IV SCH (09:00)
--- NOTE | 2021-06-25 09:31 | PDOC3 ---
[facility]-Discharge Summary Date of Admission: Date of Admission: Jun 24, 2021 Date of Discharge: Date of Discharge: Jun 25, 2021 Admission Diagnosis: Admitting Diagnosis: ICD shock Consults: Consults: Cardiology Hospital Course: Hospital Course: 51-year-old male with past medical history of CAD, CHF, hypertension, AICD placement who reports chest pain secondary to AICD firing randomly. This began 3 days ago and it felt like someone was pounding on his chest. He had one episode last night and again this morning. It occurred during rest and has a total of 3 episodes. Patient does report some shortness of breath. Denies any fevers abdominal pains or recent illnesses. = He is not vaccinated against COVID-19. He has had ICD placed since 2013. 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 He has never previously experienced the symptoms. 06/25 Patient evaluated examined at bedside. Resting in bed no complaints. ICD turned off yesterday. Can discharge home today. Outpatient cardiac follow-up and EP referral. greater than 30 minutes spent on discharge. 21 minutes advance care planning. Disposition: Disposition/Orders: D/C to Home Activity: Activity: Resume previous activity Diet: Diet: Cardiac Medications: Home Meds Active Scripts Albuterol Sulfate (PROAIR HFA INHALER) 8.5 Gm Hfa.aer.ad, 1 PUFF INH PRN Q6HRS PRN for SHORTNESS OF BREATH, #1 INHALER 0 Refills Prov:EN BRANHAM SQUEEGEER AND FORMER 12/08/17 Naproxen (NAPROXEN) 500 Mg Tablet, 1 TAB PO BID, #20 TAB 0 Refills Prov:BREE GUTHRIE SQUEEGEER AND FORMER 09/19/17 Diazepam (VALIUM) 5 Mg Tablet, 5 MG PO TID, #30 TAB Prov:JAVYDARCYBREE SQUEEGEER AND FORMER 09/19/17 Hydrocodone/Apap 5-325 (NORCO 5-325 TABLET) 1 Each Tablet, 1-2 TAB PO Q4-6HRS, #25 TAB Prov:BREE GUTHRIE SQUEEGEER AND FORMER 09/19/17 Reported Medications Carvedilol (CARVEDILOL) 25 Mg Tablet, 25 MG PO BIDWMEALS for CARDIAC, TAB 06/24/21 Rosuvastatin Calcium (CRESTOR) 40 Mg Tablet, 1 TAB PO DAILY for hld, #30 TAB 5 Refills 06/24/21 Amiodarone Hcl (AMIODARONE HCL) 200 Mg Tablet, 1 TAB PO DAILY for htn, #90 TAB 1 Refill 06/24/21 Amlodipine Besylate (NORVASC) 5 Mg Tablet, 1 TAB PO DAILY, #30 TAB 5 Refills 01/21/14 Ibuprofen (MOTRIN IB) 200 Mg Tablet, 400 MG PO PRN PRN for HEADACHE, TAB 01/19/14 Aspirin (ASPIRIN) 325 Mg Tablet, 325 MG PO DAILY 01/19/14 Clopidogrel Bisulfate (CLOPIDOGREL) 75 Mg Tablet, 75 MG PO DAILY for TO PREVENT BLOOD CLOTS, #30 TAB 0 Refills 01/19/14 Potassium Chloride (K-Tab ER) 20 Meq Tablet.er, 20 MEQ PO DAILY 09/14/13 Lisinopril (LISINOPRIL) 20 Mg Tablet, 20 MG PO BID for htn, #30 TAB 0 Refills 09/14/13 Furosemide (LASIX) 40 Mg Tablet, 40 MG PO DAILY, TAB 09/14/13 Discontinued Scripts Prednisone (PREDNISONE) 50 Mg Tablet, 1 TAB PO DAILY, #5 TAB Prov:EN BRANHAM SQUEEGEER AND FORMER 12/08/17 Scheduled Amiodarone Hcl (Amiodarone Hcl), 1 TAB PO DAILY, (Reported) Amlodipine Besylate (Norvasc), 1 TAB PO DAILY, (Reported) Aspirin (Aspirin), 325 MG PO DAILY, (Reported) Carvedilol (Carvedilol), 25 MG PO BIDWMEALS, (Reported) Clopidogrel Bisulfate (Clopidogrel), 75 MG PO DAILY, (Reported) Diazepam (Valium), 5 MG PO TID Furosemide (Lasix), 40 MG PO DAILY, (Reported) Hydrocodone/Apap 5-325 ([place] 5-325 Tablet), 1-2 TAB PO Q4-6HRS Lisinopril (Lisinopril), 20 MG PO BID, (Reported) Naproxen (Naproxen), 1 TAB PO BID Potassium Chloride (K-Tab ER), 20 MEQ PO DAILY, (Reported) Rosuvastatin Calcium (Crestor), 1 TAB PO DAILY, (Reported) Scheduled PRN Albuterol Sulfate (Proair Hfa Inhaler), 1 PUFF INH PRN Q6HRS PRN for SHORTNESS OF BREATH Ibuprofen (Motrin Ib), 400 MG PO PRN PRN for HEADACHE, (Reported) Discontinued Medications Prednisone (Prednisone), 1 TAB PO DAILY Justicifation of Admission Dx: Justifications for Admission: Justification of Admission Dx: Yes (icd shock) JAS STEVENSON MD Jun 25, 2021 09:31
--- NOTE | 2021-06-25 09:51 | NUR ---
SW following. Discussed with RN, pt from home, room air, cardiac diet. Discharge order for home with self care after pt is seen by Cardiology. RN advised no SW needs.
--- NOTE | 2021-06-25 10:29 | PDOC ---
NELSY PANG GANG [employer] 06/25/21 1029: CARDIO Progress Notes Date and Time Date of Service 06/25/2021 Time of Evaluation 1020 Subjective Subjective: No Chest Pain, No shortness of breath, No Palpitations Vitals Vitals Vital Signs Date Time Temp Pulse Resp B/P (MAP) Pulse Ox O2 Delivery O2 Flow Rate FiO2 06/25/21 07:49 Room Air 06/25/21 07:00 98.1 72 18 134/94 (107) 100 98.1 Weight Weight [ ] Input and Output Intake and Output Intake and Output 06/25/21 07:00 Intake Total 720 ml Output Total 1250 ml Balance -530 ml Intake Oral 720 ml Output Urine Total 1250 ml Laboratory Labs Laboratory Tests Test 06/25/21 05:15 White Blood Count 8.0 x10^3/uL (4.0-11.0) Red Blood Count 4.45 x10^6/uL (4.30-5.70) Hemoglobin 14.0 g/dL (13.0-17.5) Hematocrit 43.1 % (39.0-53.0) Mean Corpuscular Volume 97 fL (79-100) Mean Corpuscular Hemoglobin 32 pg (25-35) Mean Corpuscular Hemoglobin Concent 33 g/dL (31-37) Red Cell Distribution Width 13.6 % (11.5-14.5) Platelet Count 220 x10^3/uL (140-400) Neutrophils (%) (Auto) 56 % (31-73) Lymphocytes (%) (Auto) 32 % (24-48) Monocytes (%) (Auto) 9 % (0-9) Eosinophils (%) (Auto) 3 % (0-3) Basophils (%) (Auto) 0 % (0-3) Neutrophils # (Auto) 4.5 x10^3/uL (1.8-7.7) Lymphocytes # (Auto) 2.5 x10^3/uL (1.0-4.8) Monocytes # (Auto) 0.7 x10^3/uL (0.0-1.1) Eosinophils # (Auto) 0.3 x10^3/uL (0.0-0.7) Basophils # (Auto) 0.0 x10^3/uL (0.0-0.2) Sodium Level 141 mmol/L (136-145) Potassium Level 3.9 mmol/L (3.5-5.1) Chloride Level 105 mmol/L (98-107) Carbon Dioxide Level 26 mmol/L (21-32) Anion Gap 10 (6-14) Blood Urea Nitrogen 17 mg/dL (8-26) Creatinine 1.4 mg/dL (0.7-1.3) Estimated GFR (Cockcroft-Gault) 64.1 Glucose Level 94 mg/dL (70-99) Calcium Level 8.6 mg/dL (8.5-10.1) Phosphorus Level 3.5 mg/dL (2.6-4.7) Magnesium Level 2.1 mg/dL (1.8-2.4) Physical Exam HEENT: Neck Supple W Full Motion Chest: Symmetric LUNGS: Clear to Auscultation Heart: S1S2, RRR (SR) Abdomen: Soft N/T Extremities: No Edema, No Calf Tenderness Neurology: alert, oriented, follow commands Assessment Assessment 1. S/p ICD firing; Device interrogation with inappropriate shock therapy due to RV lead noise. Most probably secondary to RV lead fracture. No VT/VF recorded. AICD function has been turned off. 2. H/o severe NICM; s/p AICD (Biotronik). Recent echo showed normalized LV systolic function with EF 60 to 65% Compensated 3. CAD s/p PCI/stent to the LAD. clinically stable. CP free 4. Hypertension; controlled 5. H/o VT; on amiodarone for rhythm maintenance; No further episodes on recent device check. 6. Hyperlipidemia 7. CKD3 Recommendations Continue secondary prevention Amiodarone for rhythm maintenance Supportive care Plan outpatient referral to EP for laser lead extraction and new RV lead placement for probable RV lead fracture Follow up on July 24 10 AM Justicifation of Admission Dx: Justifications for Admission: Justification of Admission Dx: Yes (icd shock) JUANJO MORROW MD 06/25/21 1547: CARDIO Progress Notes Assessment Assessment Patient seen and examined. Agree with VISION MIXER's assessment and plan ICD firing inappropriate prob from lead fracture No VT/VF recorded CAD clinically stable Continue amiodarone for VT suppression Augie outpatient referral to EP for laser lead extraction and new RV lead placement NELSY PANG APRN Jun 25, 2021 10:29 JUANJO MORROW MD Jun 25, 2021 15:47
--- NOTE | 2021-06-25 10:39 | NUR ---
Discharge Note: RITA MCINTOSH Discharge instructions and discharge home medications reviewed with Patient and a copy given. All questions have been answered and understanding verbalized. The following instructions and handouts were given: discharge instructions and follow up appointment. Discontinued lines and drains: Peripheral IV discontinued intact. Patient discharged to Home or Self Care with Family Member via Ambulated off unit by RN.
--- NOTE | 2021-06-27 08:25 | EKG ---
[facility] [address] [place] [address] Test Date: 2021-06-24 Test Time: 07:05:54 Pat Name: RITA MCINTOSH Department: Room: 209 1 Gender: M Technical Operations Specialist: : [id number] Requested By: CHRISTIANA CHOWDHURY Order Number: [id number] Reading MD: Alen Salmeron Measurements Intervals [place] Rate: 62 P: 49 MD: 150 QRS: 26 QRSD: 90 T: 3 QT: 428 QTc: 437 Interpretive Statements SINUS RHYTHM NORMAL ECG Electronically Signed On 06-27-2021 8:56:27 NICK SETTER by Alen Salmeron
== END 2021-06-25 10:39 | disposition home or self-care (01) ==
LOC: ER 06:50 → ED HOLD 08:10 → 2 NORTH 09:36
PROVIDERS: ADMIT Internal Medicine; ATTEND Internal Medicine
DX: R07.89 Other chest pain (principal); Z20.822 Contact with and (suspected) exposure to COVID-19; N17.9 Acute kidney failure, unspecified; I13.0 Hypertensive heart and chronic kidney disease with heart failure and stage 1 through stage 4 chronic kidney disease, or unspecified chronic kidney disease; I50.32 Chronic diastolic (congestive) heart failure; N18.30 Chronic kidney disease, stage 3 unspecified; I25.10 Atherosclerotic heart disease of native coronary artery without angina pectoris; T82.190A Other mechanical complication of cardiac electrode, initial encounter; E66.01 Morbid (severe) obesity due to excess calories; E78.5 Hyperlipidemia, unspecified; F12.90 Cannabis use, unspecified, uncomplicated; N17.0 Acute kidney failure with tubular necrosis; I42.8 Other cardiomyopathies; Z87.891 Personal history of nicotine dependence; Z95.5 Presence of coronary angioplasty implant and graft; Z95.810 Presence of automatic (implantable) cardiac defibrillator; Z79.899 Other long term (current) drug therapy; Z98.890 Other specified postprocedural states; Z95.1 Presence of aortocoronary bypass graft; Z68.39 Body mass index [BMI] 39.0-39.9, adult; Y71.2 Prosthetic and other implants, materials and accessory cardiovascular devices associated with adverse incidents
CPT/HCPCS: 36415; 71045; 80048; 80053; 82550; 83735; 83880; 84100; 84484; 85025; 87426; 99285; G0378; 93005; G0379